=== PATIENT | female | born 1970 | race Native Hawaiian/Other Pacific Islander ===

== ENCOUNTER 2017-07-31 08:21 | Outpatient (CLI) | payer OTHER ==
--- NOTE | 2017-07-31 16:41 | Mammography Report ---
BILATERAL DIGITAL SCREENING MAMMOGRAM with CAD: 07/31/17 08:21:00 CLINICAL: Routine screening. COMPARISON:Previous mammograms from [facility]. The most recent mammogram is a right mammogram from 12/17/14. FINDINGS: The breasts are heterogeneously dense, which may obscure small masses. Three biopsy clips in the right breast. A coiled shaped clip is the nose clip and is associated with a circumscribed lobular shaped mass which is larger compared to the 12/17/14 exam. No other mass. No architectural distortion or suspicious calcifications. IMPRESSION: A right breast mass at 12 o'clock requiring further workup. Negative left breast. BI-RADS CATEGORY: 0 -- Additional Imaging Evaluation Required RECOMMENDATION: Recall for a right breast ultrasound to evaluate a larger mass with a biopsy clip at 12 o'clock approximately 8.5 cm from the nipple. ACR BI-RADS MAMMOGRAPHIC CODES: 0 = Needs additional imaging evaluation; 1 = Negative; 2 = Benign; 3 = Probably benign; 4 = Suspicious; 5 = Malignant; 6 = Known biopsy-proven malignancy COMMENT: 1. Dense breast tissue, i.e., adenosis, fibrocystic changes, etc., may obscure an underlying neoplasm. 2. Approximately 10% of cancers are not detected with mammography. 3. A negative mammography report should not delay biopsy if a clinically suspicious mass is present. COMMENT: Patient follow-up letters are generated via our [employer] application.
== END 2017-07-31 08:22 | disposition home or self-care (01) ==
LOC: SPVWC 08:21
PROVIDERS: ATTEND General Practice
DX: Z12.31 Encounter for screening mammogram for malignant neoplasm of breast (principal)
CPT/HCPCS: 77067

== ENCOUNTER 2017-08-13 08:10 | Outpatient (CLI) | payer OTHER ==
--- NOTE | 2017-08-13 09:19 | Ultrasound Report ---
Sonogram right breast: History: Suspected mass around the clip at 12:00 position. Findings: 3 clips are identified at the right breast. One clip is seen at 9:00 position 5 cm from nipple. Second clip is seen at 9:00 position 8 cm from the nipple. A third clip is identified at 12:00 position 5 cm from nipple. There is hypoechoic mass measuring 1.9 x 1.6 cm in diameter noted at 12:00 position adjacent to the clip. There is second hypoechoic oval mass measuring 1.1 x 0.6 cm in diameter noted at 9:00 position 5 cm from nipple. No additional masses are identified. Impression: The margin of the mass at 12:00 position and 9:00 position appears indistinct and probably irregular. Suspicious for neoplasm. Biopsy recommended. BI-RADS CATEGORY: 4 = Suspicious ACR BI-RADS MAMMOGRAPHIC CODES: 0 = Needs additional imaging evaluation; 1 = Negative; 2 = Benign; 3 = Probably benign; 4 = Suspicious; 5 = Malignant; 6 = Known biopsy-proven malignancy COMMENT: 1. Dense breast tissue, i.e., adenosis, fibrocystic changes, etc., may obscure an underlying neoplasm. 2. Approximately 10% of cancers are not detected with mammography. 3. A negative mammography report should not delay biopsy if a clinically suspicious mass is present. office was closed and could not be reached.
== END 2017-08-13 08:11 | disposition home or self-care (01) ==
LOC: SPVWC 08:10
PROVIDERS: ATTEND General Practice
DX: N63.10 Unspecified lump in the right breast, unspecified quadrant (principal)